=== PATIENT | male | born 1990 | race Caucasian/White ===

== ENCOUNTER 2022-10-28 22:23 | Emergency (ER) | payer OTHER ==
[~2022-10-28] VITALS: Ht 167.6 cm; Wt 83.9 kg
--- NOTE | 2022-10-28 22:46 | NUR ---
Patient sitting up at bedside with family, informed of plan of care, awaiting MD exam. No s/s of any distress noted at this time.
--- NOTE | 2022-10-28 23:04 | NUR ---
MD was at bedside for exam, awaiting xray and lab.
[2022-10-28 23:11] LABS: HEMATOCRIT 42.5 % (36.7-47.1); MEAN CORPUSCULAR HEMOGLOBIN 28.3 uug (23.8-33.4); MEAN CORPUSCULAR VOLUME 83.6 fL (73.0-96.2); PLATELET COUNT (AUTO) 249 K/uL (152-348)
--- NOTE | 2022-10-28 23:15 | NUR ---
Radiology at bedside.
[2022-10-28] MEDS ORDERED: BLOO-1730 MC (23:16)
[2022-10-28] MEDS ORDERED: HYDR-3980 PO (23:18)
[2022-10-28 23:27] LABS: POTASSIUM 3.5 mmol/L (3.5-5.1)
--- NOTE | 2022-10-28 23:45 | NUR ---
MD AT BEDSIDE TALKING WITH PATIENT, OKAY FOR DISCHARGE HOME WITH FAMILY. ACI GIVEN REMAINS STABLE.
[2022-10-28 23:46] VITALS: BP 146/96
== END 2022-10-28 23:47 | disposition home or self-care (01) ==
LOC: ER 22:24
DX: S20.212A Contusion of left front wall of thorax, initial encounter (principal); V00.328A Other snow-ski accident, initial encounter; Y93.23 Activity, snow (alpine) (downhill) skiing, snowboarding, sledding, tobogganing and snow tubing; Y92.89 Other specified places as the place of occurrence of the external cause
CPT/HCPCS: 36415; 71101; 85025; A4663